=== PATIENT | male | born 1995 ===

== ENCOUNTER 2023-05-05 14:48 | Outpatient (AMB) | payer OTHER, SELFPAY ==
[2023-05-05 14:55] VITALS: BP 112/60; PULSE 83; O2SAT 96; BMI 35.4
--- NOTE | 2023-05-05 14:55 | MHC.PC.OV ---
Vital Signs 05/05/23 14:55 Height 5 ft 9 in Weight 240 lb BMI 35.4 BP 112/60 Blood Pressure Location Rt brachial Pulse 83 Pulse Source Pulse Oximeter Pulse Oximetry (%) 96 Oxygen Delivery Method Room Air Intake Visit Reasons: New patient, requesting physical Intake Note: Patient is here as a new patient, needing primary care doctor. Allergies pollen extracts [POLLEN] Allergy (Unknown, Unverified 05/05/23 14:59) SWOLLEN EYES Medication List - Last Reconciled 05/05/23 by Pérez Ayala MD clonidine HCl 0.1 mg PO TID hydroxyzine HCl 25 mg PO TID lamotrigine 100 mg PO DAILY quetiapine mg PO trazodone 100 mg PO BEDTIME PRN Tobacco use date assessed: 05/05/23 Dental Screening Dental Screen Date: 05/05/23 Did you have a dental visit in the last 12 months?: No Did you have a dental problem in the last 6 months where you did not have access to dental care?: No Was dental information given to patient?: Patient has dentist HPI New patient, requesting physical HPI Details New patient Prior PCP:?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 Last office visit/CPE: Acute issue(s): PMHx: Bipolar d.o, anxiety/depression. Has PSY provider. Substance abuse Heroin, Cocaine. Goes to [facility]. SurgHx: Open reduction forearm FHx: Mom: Heart disease and transplant, Diabetes, Dad: Drug OD SocHx: Smokes 1ppd. EtOH none. [facility] Medical History (Updated 05/05/23 @ 15:22 by Eran Hanley) Bipolar 1 disorder Depression Anxiety Right arm fracture Social History (Updated 05/05/23 @ 15:11 by Madalyn Mahan [facility]) Household Members: Friend(s) Both parents involved: No Housing Other:: staying with friend Alcohol intake: former Patient Tobacco Use Status: Current everyday Tobacco user Cigarette Packs Per Day: 1 Years Smoked: started at age 18 e-Cigarette/Vaping Use: Former Use Substance Use Type: Crack/Cocaine and Heroin Special marian needs: No service: No Current occupational status: employed Current occupation: [employer] Cognitive needs: No Hearing needs: No Vision needs: No Questionnaire PHQ-9 Over the last 2 weeks, how often have you been bothered by any of the following problems? 1. Little interest or pleasure in doing things: several days 2. Feeling down, depressed, or hopeless: several days 3. Trouble falling or staying asleep, or sleeping too much: more than half the days 4. Feeling tired or having little energy: several days 5. Poor appetite or overeating: several days 6. Feeling bad about yourself - or that you are a failure or have let yourself or your family down: not at all 7. Trouble concentrating on things, such as reading the newspaper or watching television: not at all 8. Moving or speaking so slowly that other people could have noticed. Or the opposite - being so fidgety or restless that you have been moving around a lot more than usual: not at all 9. Thoughts that you would be better off or of hurting yourself in some way: not at all Total score: 6 Depression Screening Interpretation: Positive Depression Screening Follow-up: Existing condition and In treatment Depression Screening Done: Yes 77286 - PHQ-9 Billing: Yes Source: Developed by Drs. Scott Santacruz, Talia Delcid, Akhil Urbina and colleagues, with an educational sarthak from [employer]. Thrive Questionnaire Date Thrive assessed: 05/05/23 I am a: Patient What is your living situation today?: I do not have a steady places to live Within the past 12 months, did the food you bought not last and you didn't have the money to get more?: Never true Within the past 12 months, did you worry whether your food would run out before you got money to buy more?: Never true Do you have trouble paying for medicines?: No Do you have trouble getting transportation to medical appointments?: No Do you have trouble paying your heating and electricity bill?: No Do you have trouble taking care of your child, family member or friend?: No Do you have trouble with day-to-day activities such as bathing, preparing meals, shopping, managing finances, etc.?: No Are you currently unemployed and looking for a job?: No Are you interested in more education?: No THRIVE Score: 1 AUDIT C Alcohol Use Questionnaire (AUDIT-C) 1. How often do you have a drink containing alcohol?: Never 3. How often do you have six or more drinks on one occasion?: Never Total Score: 0 ROSALIE-7 AMB Questionnaire ROSALIE-7 Date ROSALIE - 7 assessed: 05/05/23 Feeling nervous, anxious, or on edge: 2 = More than half the days Not being able to stop or control worryin = Not at all Worrying too much about different things: 1 = Several days Trouble relaxin = Several days Being so restless that it is hard to sit still: 0 = Not at all Becoming easily annoyed or irritable: 3 = Nearly every day Feeling afraid as if something awful might happen: 0 = Not at all Total ROSALIE-7 score (0-4 normal; 5-9 mild; 10-14 moderate; 15-21 severe): 7 Source: Developed by Drs. Scott Santacruz, Talia Delcid, Akhil Urbina and colleagues, with an educational sarthak from [employer]. ROSALIE-7 Assessment Billing ROSALIE-7 Assessment Tool: ROSALIE-7 Assessment 22133 Review of Systems Const Denies chills, Denies fatigue, Denies fever(s), Denies headache(s) and Denies weakness ENT Denies dizziness and Denies headache(s) Card Denies chest pain, Denies lightheadedness, Denies dyspnea and Denies other (Palpitations) Resp Denies cough, Denies dyspnea, Denies wheezing and Denies other ( shortness of breath) Musc Denies numbness and Denies tingling Neuro Denies dizziness, Denies headache(s), Denies numbness, Denies tingling, Denies paresthesias and Denies weakness Psych Reports anxiety and Reports depression Endo Denies fatigue Aller/Immun Denies wheezing Physical exam (Primary Care) BMI result Body Mass Index 35.4 Tobacco/Smoking Status: Tobacco use Status Tobacco use date assessed 05/05/23 05/05/23 15:13 Patient Tobacco Use Status Current everyday Tobacco 05/05/23 15:13 e-Cigarette/Vaping Use Former Use 05/05/23 15:13 PHQ-9: PHQ-9 Score PHQ-9: Total score 6 05/05/23 15:13 Depression Screening Interpretation: Positive Depression Screening Follow-up: Existing condition and In treatment Thrive Assessment: Date of Thrive Assessment Date Thrive assessed 05/05/23 05/05/23 15:13 Const General: no acute distress and well developed Nutritional Appearance: well nourished Orientation/consciousness: patient oriented x3 HENMT Head: Yes normocephalic and Yes atraumatic Eyes General: appearance normal, both eyes and all related structures Pupils: Equal, round and reactive pupils present EOM: EOMs intact bilaterally Resp Effort & Inspection: normal respiratory effort Auscultation: clear to auscultation bilaterally Cardio Rate: regular rate Rhythm: regular rhythm Heart sounds: S1 normal heart sound present, S2 normal heart sound present, no gallops, no murmurs and no rubs Neuro General: patient oriented x3 and gait normal Cranial nerves: Yes Equal, round and reactive pupils present Psych Affect: normal affect Assessment and Plan Assessment & Plan (1) Bipolar 1 disorder: Code(s): F31.9 - Bipolar disorder, unspecified Plan: Continue?current?medication?regimen?and?follow-up?with?your?psych?med?provider Also?encouraged?therapy Patient?said?he?is?working?on?this (2) Substance abuse: Code(s): F19.10 - Other psychoactive substance abuse, uncomplicated Plan: Currently?in?recovery?and?I?recommended?he?remain?abstinent Also?offered[place]referral?if?patient?would?like.??He?will?hold?off?on?this?for?now Follow-up?with?your?psych?med?provider?as?recommended (3) Depression with anxiety: Code(s): F41.8 - Other specified anxiety disorders Plan: As?above (4) Smoker: Code(s): F17.200 - Nicotine dependence, unspecified, uncomplicated Plan: Smoking?about?a?pack?per?day He?has?quit?before?and?used?nicotine?patches?which?he?says?he?has?at?home Encouraged?him?to?consider?quitting?again. He?can?let?me?know?if?he?needs?refills?on?nicotine?patches. (5) Laboratory exam ordered as part of routine general medical examination: Code(s): Z00.00 - Encounter for general adult medical examination without abnormal findings Plan: Check?lab Orders: Orders Comprehensive [place]. Panel Fast Today Z00.00 - Encounter for general adult medical examination without abnormal findings CT NG by PCR Today Z11.3 - Encounter for screening for infections with a predominantly sexual mode of transmission Hepatitis B,C Profile Today Z11.3 - Encounter for screening for infections with a predominantly sexual mode of transmission Lipid Panel Today Z00.00 - Encounter for general adult medical examination without abnormal findings Microalbumin, Random (w Creat) Today I10 - Essential (primary) hypertension TSH reflex Free T4 Today Z00.00 - Encounter for general adult medical examination without abnormal findings UA and rflx microscopic Today Z00.00 - Encounter for general adult medical examination without abnormal findings HIV Ab/Ag Today Z11.3 - Encounter for screening for infections with a predominantly sexual mode of transmission Syphilis Screen Today Z11.3 - Encounter for screening for infections with a predominantly sexual mode of transmission Coding Level of Care Code New Pt Level 3 (92991) Diagnoses Bipolar 1 disorder F31.9 Substance abuse F19.10 Depression with anxiety F41.8 Smoker F17.200 Laboratory exam ordered as part of routine general medical examination Z00.00 Additional Codes ROSALIE-7 Assessment Billing - ROSALIE-7 Assessment Tool: ROSALIE-7 Assessment 16931 ([id number])
== END 2023-05-05 15:46 | disposition home or self-care (01) ==
PROVIDERS: PCP Family Medicine; Visit Provider Family Medicine
DX: F31.9 Bipolar disorder, unspecified (principal); F19.10 Other psychoactive substance abuse, uncomplicated; F41.8 Other specified anxiety disorders; F17.200 Nicotine dependence, unspecified, uncomplicated
CPT/HCPCS: 96127; 99203

== ENCOUNTER 2023-09-03 20:42 | Emergency (ER) | payer OTHER, SELFPAY ==
[2023-09-03] VITALS (13 sets, daily range): BP systolic 00–194; BP diastolic 00–121; PULSE 99–132; RESP 22; TEMP 32–39.3; O2SAT 50–96; BMI 38.0
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
--- NOTE | 2023-09-03 21:12 | ECG_ITS ---
Test Reason : OVERDOSE Blood Pressure : / mmHG Vent. Rate : 113 BPM Atrial Rate : 113 BPM P-R Int : 120 ms QRS Dur : 078 ms QT Int : 354 ms P-R-T Axes : 044 069 051 degrees QTc Int : 485 ms Sinus tachycardia Prolonged QT Abnormal ECG No previous ECGs available Referred By: Merline Em Electronically Signed By:GORDO WYLIE
[2023-09-03 21:25] LABS: ABG Base Excess -3.4 mmol/L; ABG HCO3 22 mmol/L (22-26); ABG pCO2 40 mmHg (32-45); ABG pH 7.33 (7.35-7.45); ABG pO2 30 mmHg (83-108)
[2023-09-03] MEDS: fentaNYL citrate/NS 1,000 MCG/100 ML PLAST..BAG 2.5 MCG IVCONT (21:38)
[2023-09-03] MEDS: propofoL 1,000 MG/100 ML VIAL 33.06 MG IVCONT (21:39)
[2023-09-03] MEDS: Midazolam HCl/NS 50 MG/50 ML PLAST..BAG IVCONT (21:49)
[2023-09-03] MEDS: Norepinephrine Bitartrate/D5W 8 MG/250 ML PLAST..BAG 10.33 MG IV (22:00)
--- OUTSIDE RECORDS SUMMARY | 2023-09-03 22:03 | XMS_ITS | Continuity of Care Document ---
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 Role Phone Not on Staff, PCP Primary Care Physician Unavail able Encounter [facility] Date(s): 05/25/19 - 05/25/[address] [address]- [facility] Encounter Diagnosis Lower extremity swelling(Final) - 05/25/19 Discharge Disposition: A-D/C Home Attending Physician: Loretta Villanueva MD Admitting Physician: Loretta Villanueva MD Referring Physician: Not on Staff, Referring MD Allergies, Adverse Reactions, Alerts Substance Reaction Severity Status NKA Active Results Radiology Reports * Exam Date Time Procedure Performing Provider Status 05/25/19 10:39 AM Chest 2 Views Frontal and Lat Gage, Arpit ramos; Auth (Verified) Notes: (Chest 2 Views Frontal and Lat) Reason For Exam: Persistent Cough RESULT: Chest 2 Views Frontal and Lat Chest 2 Views Frontal and Lat Reason: Persistent Cough; Clinical Question(s): Pleural Effusion COMPARISON: 03/13/2018 FINDINGS: No acute process IMPRESSION: No acute abnormality. WSN: [id number] Dictated By: Royer Bowers MD Dictated Date/Time: 05/25/19 10:44 a Reviewed By: Royer Bowers MD Signed By: Royer Bowers MD Signed Date/Time: 05/25/19 10:44 am Transcribed By: LIAM Transcribed Date/Time: 05/25/19 10:43 am Vital Signs Most recent to oldest [Reference Range]: 1 2 3 Weight 112.4 kg (05/25/19 1:06 PM) 112.4 kg (05/25/19 10:08 AM) 112.4 kg (05/25/19 9:39 AM) Oxygen Saturation [94-100 %] 98 % (05/25/19 1:06 PM) 99 % (05/25/19 9:39 AM) Pulse Rate [55-90 bpm] 70 bpm (05/25/19 1:06 PM) 66 bpm (05/25/19 9:39 AM) Blood Pressure [90-138/55-84 mm Hg] 112/87mm Hg (05/25/19 1:06 PM) 144/61mm Hg *H* (05/25/19 9:39 AM) Respiratory Rate [16-30 br/min] 16 br/min (05/25/19 1:06 PM) 18 br/min (05/25/19 9:39 AM) Temperature [96.8-100.4 DegF] 97.8 DegF (05/25/19 9:39 AM) Mode of Delivery (Oxygen) Room air (05/25/19 1:06 PM) Room air (05/25/19 9:39 AM) Blood pressure sites Arm, left (05/25/19 1:06 PM) Arm, right (05/25/19 9:39 AM) Temperature Route Oral (05/25/19 9:39 AM) Dry Weight 112.4 kg (05/25/19 1:06 PM) 112.4 kg (05/25/19 10:08 AM) 112.4 kg (05/25/19 9:39 AM) Dry Weight Obtained Via Standing scale (05/25/19 9:39 AM)
[2023-09-03] MEDS: 0.9 % Sodium Chloride 1,000 ML 999 ML IVCONT (22:05)
[2023-09-03 22:09] LABS: MANUAL DIFF FLAG NO
[2023-09-03 22:12] LABS: ABG Base Excess -1.9 mmol/L; ABG HCO3 21 mmol/L (22-26); ABG pCO2 31 mmHg (32-45); ABG pH 7.43 (7.35-7.45); ABG pO2 57 mmHg (83-108)
[2023-09-03 22:13] LABS: VBG Base Excess -0.6 mmol/L; VBG HCO3 24 mmol/L (22-26); VBG pCO2 40 mmHg; VBG pH 7.38 (7.32-7.43); VBG pO2 36 mmHg
[2023-09-03 22:13] LABS: Basophils Percent Auto 0.2 % (0-2); Eosinophils Percent Auto 0.1 % (0-4); Hematocrit 42.4 % (42.0-52.0); Hemoglobin 14.8 g/dl (14.0-18.0); Imm Gran Abs Auto 0.09 X10*3/uL (0.00-0.03); Imm Gran Pct Auto 0.7 % (0.0-0.4); Lymphocytes Absolute Auto 1.6 X10*3/uL (1.2-4.9); Lymphocytes Percent Auto 11.4 % (20-40); Mean Corpuscular HGB Conc 34.9 g/dl (31.0-36.0); Mean Corpuscular Hemoglobin 29.1 pg (27.0-33.0); Mean Corpuscular Volume 83.5 fL (80.0-98.0); Mean Platelet Volume 9.4 fL (9.4-12.4); Monocytes Absolute Auto 0.5 X10*3/uL (0.1-1.2); Monocytes Percent Auto 3.9 % (2-11); Neutrophils Absolute Auto 11.4 x10*3/uL (2.0-8.3); Neutrophils Percent Auto 83.7 % (45-73); Platelet Count 265 X10*3/uL (160-400); Red Blood Count 5.08 X10*6/uL (4.60-5.80); Red Cell Distribution Width 12.3 % (11.0-16.0); White Blood Count 13.7 X10*3/uL (4.8-10.8)
[2023-09-03] MEDS: Norepinephrine Bitartrate/D5W 8 MG/250 ML PLAST..BAG 14.46 MG IV (22:14)
[2023-09-03 22:17] LABS: Ammonia 30 umol/L (13-55)
[2023-09-03 22:17] LABS: Venous Blood Gas Refer to POC result
[2023-09-03 22:18] LABS: INTERNATIONAL NORM RATIO 1.5 (0.9-1.1); Prothrombin Time 17.8 SEC (11.1-13.3)
[2023-09-03 22:24] LABS: Ethanol < 10 mg/dL
[2023-09-03 22:25] LABS: Appearance Urine Hazy; Color Urine Yellow; Glucose Urine UA 100 mg/dL (Negative); Leukocyte Esterase Urine Negative (Negative); Nitrite Urine Negative (Negative); PH 5.5 (5.0-9.0); Specific Gravity - Urine >= 1.030 (1.005-1.025); UMIC TRIGGER UACC YES; Urine Blood Trace (Negative); Urine Ketones Negative (Negative); Urine Protein 300 (3+) mg/dL (Neg-Trace)
[2023-09-03 22:25] LABS: Lactic Acid 3.2 mmol/L (0.5-2.0)
[2023-09-03 22:27] LABS: Alanine Aminotransferase 38 U/L (0-40); Albumin Level 3.9 g/dL (3.5-5.0); Alkaline Phosphatase 70 U/L (39-117); Anion Gap 21 (12-20); Aspartate Amino Transferase 43 U/L (5-37); Bilirubin Direct 0.6 mg/dL (0.0-0.5); Bilirubin Total 1.3 mg/dL (0.0-1.0); Blood Urea Nitrogen 15 mg/dL (9-16); COVID-19 Test Negative (Negative); Calcium 8.9 mg/dL (8.4-10.2); Carbon Dioxide 21 mmol/L (22-29); Chloride 96 mmol/L (96-108); Creatinine Clr Calc Pharmacy 107.6; Estimated Glomerular Filt Rate > 60; Glucose Random 261 mg/dL (60-115); IDNOW Serial# 08D9AD1C; IDNOW Serial# 152EDE1D; Influenza A Negative (Negative); Influenza B2 Negative (Negative); Magnesium 1.7 mg/dL (1.6-2.6); Sodium 135 mmol/L (135-145); Total Protein 7.2 g/dL (6.5-8.0)
[2023-09-03 22:30] LABS: B Type Natriuretic Peptide < 10 pg/mL (<100)
[2023-09-03 22:31] LABS: Acetaminophen LAB < 3 mcg/mL (<30); Salicylate < 5.0 mg/dL (15-30)
[2023-09-03] MEDS: Ketamine HCl/NS 50 MG/5 ML SYRINGE 200 MG IVPUSH (22:33)
[2023-09-03 22:37] LABS: Amphetamine Screen Urine Not Detected (Not Detect); Barbiturates, Urine Not Detected (Not Detect); Benzodiazepines Screen Urine POSITIVE (Not Detect); Buprenorphine Scr Not Detected (Not Detect); Cannabinoid Screen Urine Not Detected (Not Detect); Cocaine Screen Urine POSITIVE (Not Detect); Fentanyl, urine POSITIVE (Not Detect); Methadone Screen, Urine Positive (Not Detect); Opiate Screen Urine POSITIVE (Not Detect); Oxycodone Screen Urine Not Detected (Not Detect); Phencyclidine Screen Urine Not Detected (Not Detect)
[2023-09-03 22:41] LABS: Bacteria Urine 1+ (None Seen); RBC Urine 0-2 /HPF (0-2); Squamous Epithelial Cell Urine 0-2 /HPF (0-2); WBC Urine 0-5 /HPF (0-5)
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
[2023-09-03] MEDS: Ketamine HCl 500 MG in 0.9 % Sodium Chloride 250 ML 28.1 MG IVCONT (23:31)
[2023-09-03] MEDS: Piperacillin Sodium/Tazobactam 4.5 GM in 0.9 % Sodium Chloride 100 ML IV (23:47)
--- NOTE | 2023-09-03 23:53 | PC.NURSE ---
[id number]. Levophed drip titrated down.
[2023-09-03] MEDS: Potassium Chloride/H20 40 MEQ/100 ML PIGGYBACK 100 MEQ IV (23:59)
[2023-09-04 00:07] LABS: Reflex Lactate? Lactic Acid Added
[2023-09-04 00:17] VITALS: BP 135/94; PULSE 115; RESP 22; TEMP 39.3; O2SAT 95
[2023-09-04] MEDS: Acetaminophen 1,000 MG/100 ML PIGGYBACK 400 MG IV (00:29)
[2023-09-04] MEDS: 0.9 % Sodium Chloride 2,000 ML 999 ML IVCONT (00:31)
[2023-09-04 00:37] VITALS: BP 140/96; PULSE 110; RESP 22; TEMP 39.2; O2SAT 95
[2023-09-04 00:44] LABS: ABG Refer to POC result
[2023-09-04 00:45] LABS: ABG Refer to POC result
--- NOTE | 2023-09-04 01:05 | MHC.EDTECH ---
300ml of urine emptied from Pts leblanc
--- NOTE | 2023-09-04 01:14 | PC.NURSE ---
report given to Monica AKHTAR at [facility]
[2023-09-04 02:13] VITALS: BP 140/96; PULSE 110; RESP 22; TEMP 38.8; O2SAT 95
== END 2023-09-04 02:13 | disposition short-term general hospital (02) ==
PROVIDERS: Emergency Provider Emergency Medicine
DX: T50.901A Poisoning by unspecified drugs, medicaments and biological substances, accidental (unintentional), initial encounter (principal); J80 Acute respiratory distress syndrome; E87.6 Hypokalemia; Y92.9 Unspecified place or not applicable; Z11.52 Encounter for screening for COVID-19
CPT/HCPCS: 31500; 36415; 36556; 51701; 70450; 71045; 71260; 72125; 74177; 80048; 80076; 80143; 80179; 80307; 81001; 82140; 82803; 83605; 83735; 83880; 84484; 85025; 85610; 87040; 87502; 87635; 93005; 94002; 96365; 96366; 96367; 96375; 99285; J0131; J2251; J2543; J2704; J3010; J3480

== ENCOUNTER → 2023-09-03 21:12 | Outpatient (BNV) | payer OTHER, SELFPAY | PROVIDERS: Emergency Provider Emergency Medicine; Visit Provider Internal Medicine | DX: I45.81 Long QT syndrome (principal) | CPT/HCPCS: 93010 ==

== ENCOUNTER 2023-11-03 11:16 | Outpatient (AMB) | payer OTHER, SELFPAY ==
--- NOTE | 2023-11-03 11:21 | MHC.PC.OV ---
Vital Signs 11/03/23 11:23 Height 5 ft 7 in Weight 255 lb 4 oz BMI 40.0 BP 112/78 Blood Pressure Location Lt brachial Position Sitting Pulse 79 Pulse Source Pulse Oximeter Pulse Oximetry (%) 96 Oxygen Delivery Method Room Air Intake Visit Reasons: est/ bleeding after bowel movements Intake Note: Patient is here to follow up on Bleeding after bowel movement ongoing since 09/10/23. Check Out Cashier Required: No Blue Line Trimmer: Not Required per policy Accompanied by: Self / Same As Patient Allergies pollen extracts [POLLEN] Allergy (Unknown, Verified 11/03/23 11:23) SWOLLEN EYES Tobacco use date assessed: 11/03/23 Dental Screening Dental Screen Date: 05/05/23 HPI est/ bleeding after bowel movements HPI Details 28 y/o male presents today with complaints of blood after a bowel movement. He reports symptoms started early September. He reports burning feeling and blood mostly on toilet paper. He notes symptoms of initial diarrhea after he had woken up from a coma. He reports hx of substance abuse. He states he is no longer using substances. [facility] Medical History (Updated 11/03/23 @ 11:36 by Pérez Ayala MD) Bipolar 1 disorder Depression Anxiety Right arm fracture Surgical History (Updated 11/03/23 @ 11:30 by ARUN Marin) No pertinent past surgical history Family History (Updated 11/03/23 @ 11:22 by ARUN Marin) Other Mental health disorder Substance use disorder Social History (Updated 11/03/23 @ 11:30 by ARUN Marin) Household Members: Friend(s) Both parents involved: No Housing Other:: staying with friend Unable to assess alcohol history related to: Unable to respond Alcohol intake: former Patient Tobacco Use Status: Current everyday Tobacco user Tobacco use type: Cigarette Cigarette Packs Per Day: 0.5 Cigarettes Per Day: 5 Years Smoked: started at age 18 e-Cigarette/Vaping Use: Former Use Second Hand Smoke Exposure: Yes Substance Use Type: Crack/Cocaine, Heroin and Marijuana Special marian needs: No service: No Current occupational status: employed Current occupation: [employer]. Cognitive needs: No Hearing needs: No Vision needs: No Questionnaire Thrive Questionnaire Date Thrive assessed: 05/05/23 ROSALIE-7 AMB Questionnaire ROSALIE-7 Date ROSALIE - 7 assessed: 05/05/23 Source: Developed by Drs. Scott Santacruz, Talia Delcdi, Akhil Urbina and colleagues, with an educational sarthak from [employer]. Review of Systems Const Denies chills, Denies fatigue, Denies fever(s), Denies headache(s) and Denies weakness ENT Denies dizziness and Denies headache(s) Card Denies dyspnea Resp Denies cough, Denies dyspnea, Denies wheezing and Denies other (shortness of breath) Musc Denies numbness and Denies tingling Neuro Denies dizziness, Denies headache(s), Denies numbness, Denies tingling and Denies weakness Psych Denies anxiety and Denies depression Endo Denies fatigue Aller/Immun Denies wheezing Physical exam (Primary Care) Vital Signs: Last Vital Signs Pulse 79 11/03/23 11:23 BP 112/78 11/03/23 11:23 Pulse Ox 96 11/03/23 11:23 Oxygen Delivery Method Room Air 11/03/23 11:23 BMI result Body Mass Index 40.0 Tobacco/Smoking Status: Tobacco use Status Tobacco use date assessed 11/03/23 11/03/23 11:32 Patient Tobacco Use Status Current everyday Tobacco 11/03/23 11:32 Tobacco use type Cigarette 11/03/23 11:32 e-Cigarette/Vaping Use Former Use 11/03/23 11:32 Thrive Assessment: Date of Thrive Assessment Date Thrive assessed 05/05/23 11/03/23 11:32 Const General: well developed; No acute distress Nutritional Appearance: well nourished Orientation/consciousness: patient oriented x3 [facility] Head: Yes normocephalic and Yes atraumatic Eyes General: appearance normal, both eyes and all related structures Pupils: Equal, round and reactive pupils present EOM: EOMs intact bilaterally Resp Effort & Inspection: normal respiratory effort Neuro General: patient oriented x3 and gait normal Cranial nerves: Yes Equal, round and reactive pupils present Psych Affect: normal affect Assessment and Plan Assessment & Plan (1) Rectal bleeding: Code(s): K62.5 - Hemorrhage of anus and rectum Plan: No?external?hemorrhoid?or?fissure?seen?though?he?does?have?some?perianal?irritation?which?is?likely?secondary?to?frequent?diarrhea May?have?some?constipation?and?diarrhea?so?advised?he?keep?stools?soft Increase?hydration Keep?stools?soft-use?MiraLax Avoid?substances?that?can?cause constipation Check?CBC?and?CMP Can?use?Desitin?for?anal?and?perianal?irritation Referred?to?Gastroenterology (2) Substance abuse: Code(s): F19.10 - Other psychoactive substance abuse, uncomplicated Plan: History?of?substance?abuse?with?recent?overdose?in?August/September Patient?says?he?is?no?longer?using?substances Encouraged?abstinence Orders: Orders Complete Blood Count Auto Diff Today K62.5 - Hemorrhage of anus and rectum, Z00.00 - Encounter for general adult medical examination without abnormal findings Comprehensive Met. Panel Today K62.5 - Hemorrhage of anus and rectum Referrals Gastroenterology Referral K62.5 - Hemorrhage of anus and rectum Medications: New polyethylene glycol 3350 (Miralax) 17 grams PO DAILY 14 days 14 ea 2RF Coding Level of Care Code Est Pt Level 3 (25205) Diagnoses Rectal bleeding K62.5 Substance abuse F19.10
[2023-11-03 11:23] VITALS: BP 112/78; PULSE 79; O2SAT 96; BMI 40.0
== END 2023-11-03 12:02 | disposition home or self-care (01) ==
PROVIDERS: PCP Family Medicine; Visit Provider Family Medicine
DX: K62.5 Hemorrhage of anus and rectum (principal); F19.10 Other psychoactive substance abuse, uncomplicated
CPT/HCPCS: 99213